=== PATIENT | male | born 1955 | race Caucasian/White ===

== ENCOUNTER → 2018-01-28 | Outpatient (CLI) | payer OTHER ==
--- NOTE | 2018-01-28 10:05 | Diagnostic Imaging Report ---
TECHNIQUE: Magnetic resonance imaging of the LEFT KNEE was performed WITHOUT injected contrast. HISTORY: Knee pain COMPARISON: None available. FINDINGS: LIGAMENTS AND TENDONS: ACL: Mucoid degeneration PCL: Intact Collateral ligaments: Intact Iliotibial band: Unremarkable Popliteal tendon: Intact Extensor mechanism: Intact JOINT: Menisci: Medial: Intact Lateral: Free margin fraying without discrete tear. Articular Cartilage: Medial Compartment: Cartilage thinning Lateral Compartment: Cartilage thinning Patellofemoral Compartment: Cartilage thinning Joint Fluid: Trace joint effusion and Cabrera's cyst. BONE: No focal or infiltrative bone marrow replacing abnormality. No acute fracture. SOFT TISSUES: Otherwise, unremarkable. IMPRESSION: Lateral meniscus free margin fraying without discrete tear. Mild tricompartmental cartilage loss. Signed by: Dr. Juno Pereyra M.D. on 01/28/2018 10:02 AM
== END ==
LOC: MRI 07:42
PROVIDERS: ATTEND Family Medicine
DX: M25.562 Pain in left knee (principal)

== ENCOUNTER 2020-02-23 18:58 | Emergency (ER) | payer BC, OTHER ==
[~2020-02-23] VITALS: Ht 188 cm; Wt 102.1 kg
[2020-02-23] MEDS ORDERED: SODIUM CHLORIDE 0.9% 1000ML 1,000 ML IV ONE (19:45)
[2020-02-23] MEDS ORDERED: CEFTRIAXONE SOD 1 GM/NS 50 ML 50 ML IV ONE (19:45)
[2020-02-23] MEDS ORDERED: ACETAMINOPHEN 325 MG TAB PO ONE (19:45)
--- NOTE | 2020-02-23 19:54 | Emergency Department Note ---
History of Present Illnes History of Present Illness Chief Complaint: COVID PUI History of Present Illness This is a 65 year old male IN FROM HOME WITH COMPLAINTS OF LEFT SIDED CHEST PAIN STARTING LAST NIGHT; STATES IT GOT BETTER AND THEN WHEN HE LAYED BACK DOWN IT GOT WORSE. PATIENT DENIES PAIN AT THIS TIME. PATIENT TACHYCARDIC AND FEBRILE IN TRIAGE. PATIENT INITIALLY REFUSING TO WEAR HIS MASK ABOVE HIS NOSE. ALSO REPORTS AN OCCASIONAL MILD COUGH . Historian: Patient, Family Member Arrival Mode: Car Parking Garage Manager Required: No Onset (how long ago): day(s) (1) Location: LEFT LOWER CHEST Quality: PAIN Radiation: Reports non-radiation Severity: moderate Onset quality: gradual Duration (how long): day(s) (1) Timing of current episode: constant Progression: worsening Context: Denies recent illness, Denies recent surgery Relieving factors: none Exacerbating factors: movement Associated symptoms: Reports cough (MILD) Past Medical/Family History Physician Review I have reviewed the patient's past medical and family history. Any updates have been documented here. Past Medical History Recent Fever: Yes Clinical Suspicion of Infectio: Yes New/Unexplained Change in Ment: No Past Medical History: Hypertension, Asthma Other Medical History: SEASONAL ALLERGIES Past Surgical History: Cholecysctectomy Other Surgery: FUNDOPLICATION ACDF Social History Smoking Cessation: Never Smoker Alcohol Use: None Any Illegal Drug Use: No Physically hurt or threatened: No Family History Family history of heart diseas: No Review of Systems Review of Systems Constitutional: Reports no symptoms EENTM: Reports no symptoms Cardiovascular: Reports no symptoms Respiratory: Reports as per HPI Gastrointestinal: Reports no symptoms Genitourinary: Reports no symptoms Musculoskeletal: Reports no symptoms Integumentary: Reports no symptoms Neurological: Reports no symptoms Psychological: Reports no symptoms Endocrine: Reports no symptoms Hematological/Lymphatic: Reports no symptoms Physical Exam Related Data Allergies: Coded Allergies: Penicillins (Verified Allergy, Unknown, " A CHILD", 02/23/20) Triage Vital Signs Vital Signs Date Time Temp Pulse Resp B/P (MAP) Pulse Ox O2 Delivery O2 Flow Rate FiO2 02/23/20 19:33 100.3 117 22 155/81 97 Room Air Vital signs reviewed: Yes Physical Exam CONSTITUTIONAL Constitutional: Present well-developed, Present well-nourished; Absent distressed HENT HENT: Present normocephalic, Present atraumatic, Present oropharynx clear/moist, Present nose normal HENT L/R: Present left ext ear normal, Present right ext ear normal EYES Eyes: Reports PERRL, Reports conjunctivae normal NECK Neck: Present ROM normal PULMONARY Pulmonary: Present effort normal, Present rhonchi (LEFT BASE) CARDIOVASCULAR Cardiovascular: Present regular rhythm, Present heart sounds normal, Present capillary refill normal, Present normal rate GASTROINTESTINAL Abdominal: Present soft, Present nontender, Present bowel sounds normal GENITOURINARY Genitourinary: Present exam deferred SKIN Skin: Present warm, Present dry MUSCULOSKELETAL Musculoskeletal: Present ROM normal NEUROLOGICAL Neurological: Present alert, Present oriented x 3, Present no gross motor or sensory deficits PSYCHOLOGICAL Psychological: Present mood/affect normal, Present judgement normal Results Laboratory Laboratory Laboratory Tests Test 02/23/20 21:28 02/23/20 21:18 02/23/20 19:55 Urine Color Straw (YELLOW) Urine Clarity Sl cloudy (CLEAR) Urine pH 6.5 (5 - 7) Urine Specific [place] 1.025 (1.010-1.025) Urine Protein Negative (NEGATIVE) Urine Glucose (UA) Negative (NEGATIVE) Urine Ketones Negative (NEGATIVE) Urine Blood Negative (NEGATIVE) Urine Nitrite Negative (NEGATIVE) Urine Bilirubin Negative (NEGATIVE) Urine Urobilinogen 1 mg/dL (0.2 - 1) Urine Leukocyte Esterase Negative (NEGATIVE) Urine RBC None /HPF (0-5) Urine WBC None /HPF (0-5) Urine Epithelial Cells None /LPF (NONE) Urine Bacteria None /HPF (NONE) Lactic Acid Level 1.0 mmol/L (0.5-2.0) White Blood Count 11.21 x10e3/uL (4.8-10.8) Red Blood Count 4.91 x10e6/uL (4.3-5.7) Hemoglobin 14.0 g/dL (14.0-18.0) Hematocrit 43.3 % (38.2-49.6) Mean Corpuscular Volume 88.2 fL (81-99) Mean Corpuscular Hemoglobin 28.5 pg (28-32) Mean Corpuscular Hemoglobin Concent 32.3 g/dL (31-35) Red Cell Distribution Width 12.5 % (11.7-14.4) Platelet Count 253 x10e3/uL (140-360) Neutrophils (%) (Auto) 70.7 % (38.7-80.0) Lymphocytes (%) (Auto) 12.8 % (18.0-39.1) Monocytes (%) (Auto) 10.9 % (4.4-11.3) Eosinophils (%) (Auto) 4.5 % (0.0-6.0) Basophils (%) (Auto) 0.6 % (0.0-1.0) Neutrophils # (Auto) 7.9 (2.1-6.9) Lymphocytes # (Auto) 1.4 (1.0-3.2) Monocytes # (Auto) 1.2 (0.2-0.8) Eosinophils # (Auto) 0.5 (0.0-0.4) Basophils # (Auto) 0.1 (0.0-0.1) Absolute Immature Granulocyte (auto 0.06 x10e3/uL (0-0.1) Sodium Level 138 mmol/L (136-145) Potassium Level 3.8 mmol/L (3.5-5.1) Chloride Level 103 mmol/L (98-107) Carbon Dioxide Level 25 mmol/L (22-29) Anion Gap 13.8 mmol/L (8-16) Blood Urea Nitrogen 21 mg/dL (7-26) Creatinine 1.17 mg/dL (0.72-1.25) Estimat Glomerular Filtration Rate > 60 ML/MIN (60-) BUN/Creatinine Ratio 18 (6-25) Glucose Level 98 mg/dL (74-118) Calcium Level 9.9 mg/dL (8.4-10.2) Total Bilirubin 1.2 mg/dL (0.2-1.2) Aspartate Amino Transf (AST/SGOT) 17 IU/L (5-34) Alanine Aminotransferase (ALT/SGPT) 15 IU/L (0-55) Alkaline Phosphatase 55 IU/L (40-150) Creatine Kinase 126 IU/L (30-200) Creatine Kinase MB 1.00 ng/mL (0-5.0) Troponin I 0.004 ng/mL (0-0.300) Total Protein 7.9 g/dL (6.5-8.1) Albumin 4.5 g/dL (3.5-5.0) Globulin 3.4 g/dL (2.3-3.5) Albumin/Globulin Ratio 1.3 (0.8-2.0) Lab results reviewed: Yes Imaging Imaging results reviewed: Yes Impressions Procedure: [id number] DX/CHEST SINGLE (PORTABLE) Exam Date: 02/23/20 Exam Time: 2209 REPORT STATUS: Signed EXAMINATION: CHEST SINGLE (PORTABLE) INDICATION: COUGH, FEVER COMPARISON: None. FINDINGS: Heart is normal in size. Pulmonary vasculature is nondistended. Hazy and patchy left basilar opacity obscures the cardiac apex. Biapical scarring. Cervical fusion hardware partially imaged. IMPRESSION: Left lingular pneumonia. Radiographic follow-up in 6-8 weeks is recommended to document resolution. Signed by: Lesia Sexton MD on 02/23/2020 10:39 PM Dictated By: LESIA SEXTON MD 38 Transcribed By: SACHA on 02/23/202238 COPY TO: ANI CONNER MD~ Procedures 12 Lead ECG Interpretation ECG Interpretation : ECG: ECG 1 Parking Garage Manager: Interpreted by ED physician Date: Feb 23, 2020 Time: 19:32 Rhythm: sinus tachycardia Rate: tachycardia BPM: 111 QRS axis: normal ST segments normal: Yes T waves normal: Yes Other findings: no other findings Clinical Impression: non-specific ECG Assessment & Plan Medical Decision Making MDM PT WITH FEVER, COUGH, LEFT LOWER CHEST PAIN CBC,CMP, EKG, CARDIAC ENZYMES, BLOOD CULTURES, LACTIC ACID, CXR ORDERED TO EVAL FOR PNEUMONIA, SEPSIS, ELECTROLYTE ABNORMALITY, PLEURAL EFFUSION, MYOCARDIAL INFARCTION ROCEPHIN 1 GRAM IV ORDERED NS 1 LITER IV BOLUS ORDERED TYLENOL 650 MG PO ORDERED Reassessment Reassessment time: 22:50 Reassessment PT FEELS GOOD, NAD, WANTS TO GO HOME DISCHARGED WITH LEVAQUIN 750 MG PO DAILY FOR 10 DAYS Assessment & Plan Final Impression: (1) Pneumonia Depart Disposition: HOME, SELF-CARE Last Vital Signs Date Time Temp Pulse Resp B/P (MAP) Pulse Ox O2 Delivery O2 Flow Rate FiO2 02/23/20 19:33 100.3 117 22 155/81 97 Room Air Medications in the ED Ceftriaxone Sodium 50 ml @ 100 mls/hr ONCE ONCE IV ; Start 02/23/20 at 19:45; Stop 02/23/20 at 20:14 Acetaminophen 650 mg ONCE ONCE PO ; Start 02/23/20 at 19:45; Stop 02/23/20 at 19:46; Status DC Sodium Chloride 1,000 ml @ 999 mls/hr Q1H1M ONCE IV ; Start 02/23/20 at 19:45; Stop 02/23/20 at 20:45 ANI CONNER MD Feb 23, 2020 19:54
[2020-02-23 20:08] LABS: BASOPHILS # (AUTO) 0.1 (0.0-0.1); BASOPHILS % 0.6 % (0.0-1.0); EOSINOPHILS # (AUTO) 0.5 (0.0-0.4); EOSINOPHILS % 4.5 % (0.0-6.0); HEMATOCRIT 43.3 % (38.2-49.6); LYMPHOCYTES # (AUTO) 1.4 (1.0-3.2); LYMPHOCYTES % 12.8 % (18.0-39.1); MEAN CORPUSCULAR HEMOGLOBIN 28.5 pg (28-32); MEAN CORPUSCULAR HGB CONC 32.3 g/dL (31-35); MEAN CORPUSCULAR VOLUME 88.2 fL (81-99); MONOCYTES # (AUTO) 1.2 (0.2-0.8); MONOCYTES % 10.9 % (4.4-11.3); NEUTROPHILS # (AUTO) 7.9 (2.1-6.9); NEUTROPHILS % 70.7 % (38.7-80.0); PLATELET COUNT 253 x10e3/uL (140-360); RED BLOOD COUNT 4.91 x10e6/uL (4.3-5.7); RED CELL DISTRIBUTION WIDTH 12.5 % (11.7-14.4)
[2020-02-23 20:29] LABS: ALANINE AMINOTRANSFERASE 15 IU/L (0-55); ALBUMIN 4.5 g/dL (3.5-5.0); ALBUMIN/GLOBULIN RATIO 1.3 (0.8-2.0); ALKALINE PHOSPHATASE 55 IU/L (40-150); ANION GAP 13.8 mmol/L (8-16); BLOOD UREA NITROGEN 21 mg/dL (7-26); BUN/CREATININE RATIO 18 (6-25); CALCIUM 9.9 mg/dL (8.4-10.2); CARBON DIOXIDE 25 mmol/L (22-29); CHLORIDE 103 mmol/L (98-107); CREATINE KINASE 126 IU/L (30-200); CREATININE, SERUM 1.17 mg/dL (0.72-1.25); EST GLOMERULAR FILTRATION RATE > 60 ML/MIN (60-); GLUCOSE 98 mg/dL (74-118); POTASSIUM 3.8 mmol/L (3.5-5.1); SODIUM 138 mmol/L (136-145)
[2020-02-23 21:46] LABS: BILIRUBIN,URINE NEGATIVE (NEGATIVE); CLARITY,URINE SL CLOUDY (CLEAR); COLOR,URINE STRAW (YELLOW); KETONES,URINE NEGATIVE (NEGATIVE); LEUKOCYTE ESTERASE ,URINE NEGATIVE (NEGATIVE); NITRITE,URINE NEGATIVE (NEGATIVE); PROTEIN,URINE DIPSTICK NEGATIVE (NEGATIVE); URINE UROBILINOGEN 1 mg/dL (0.2 - 1)
--- NOTE | 2020-02-23 22:43 | Diagnostic Imaging Report ---
EXAMINATION: CHEST SINGLE (PORTABLE) INDICATION: COUGH, FEVER COMPARISON: None. FINDINGS: Heart is normal in size. Pulmonary vasculature is nondistended. Hazy and patchy left basilar opacity obscures the cardiac apex. Biapical scarring. Cervical fusion hardware partially imaged. IMPRESSION: Left lingular pneumonia. Radiographic follow-up in 6-8 weeks is recommended to document resolution. Signed by: Blayne Shields MD on 02/23/2020 10:39 PM
[2020-02-23 22:51] VITALS: BP 121/68
== END 2020-02-23 23:00 | disposition home or self-care (01) ==
LOC: ER 20:48
DX: R07.89 Other chest pain (principal); J18.9 Pneumonia, unspecified organism; R50.9 Fever, unspecified; R05 Cough; I10 Essential (primary) hypertension; J45.909 Unspecified asthma, uncomplicated
CPT/HCPCS: 36415; 71045; 80053; 81001; 82550; 82553; 83605; 84484; 85025; 87040; 93005; 99284; J0696; J7030

== ENCOUNTER → 2020-08-11 | Outpatient (CLI) | payer BC | LOC: CT 11:29 | PROVIDERS: ATTEND Family Medicine | DX: R06.02 Shortness of breath (principal) | CPT/HCPCS: 71250 ==